=== PATIENT | female | born 1975 | race Caucasian/White ===

== ENCOUNTER 2016-09-20 09:05 | Emergency (ER) | payer MEDICAID ==
[~2016-09-20] VITALS: Ht 157.5 cm; Wt 62.0 kg
[~2016-09-20 09:05] MED LIST: NPH10OT RIGHT EAR
[2016-09-20 09:07] VITALS: Ht 157.5 cm; Wt 62.0 kg
[2016-09-20] MEDS ORDERED: KETOROLAC 30 MG INJ IM STA (09:48)
[2016-09-20] MEDS ORDERED: CYCL-319 PO (10:44)
[2016-09-20] MEDS ORDERED: TRAM50TA2 PO (10:44)
[2016-09-20] MEDS ORDERED: NAPR-260 PO (10:45)
--- NOTE | 2016-09-20 10:54 | ERD ---
ER Documentation Chief Complaint Date/Time DATE: 09/20/16 TIME: 10:49 Chief Complaint neck pain/spasm HPI This a 40-year-old female who presents the emergency department today complaining of neck pain that started last night while she was sleeping. States she has been icy hot patch on it. States that she has some pain down into her right arm. 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 Denies any sore throat , fevers or chills. Denies any trauma. ROS All systems reviewed and are negative except as per history of present illness. Medications Home Meds Active Scripts Naproxen* (Naprosyn*) 500 Mg Tablet, 500 MG PO BID Y for PAIN AND/OR INFLAMMATION, #30 TAB Prov:KARMEN COLLIER PA-C 09/20/16 Cyclobenzaprine Hcl* (Cyclobenzaprine Hcl*) 10 Mg Tablet, 10 MG PO QHS, #7 TAB Prov:KARMEN COLLIERC 09/20/16 Tramadol HCl (Tramadol HCl) 50 Mg Tablet, 50 MG PO Q4 Y for PAIN, #20 TAB Prov:KARMEN COLLIERC 09/20/16 Neomycin/Polymyxin/Hydrocort* (Cortisporin* Otic) 10 Ml Susp, 4 DROP RIGHT EAR QID for 7 Days, EA Prov:JULIANNA OVALLE NP 02/10/15 Allergies Allergies: Coded Allergies: No Known Allergy (Verified Allergy, Unknown, 07/02/08) PMhx/Soc Medical and Surgical Hx: pt denies Medical Hx, pt denies Surgical Hx Hx Alcohol Use: No Hx Substance Use: No Hx Tobacco Use: No Smoking Status: Never smoker Physical Exam Vitals Vital Signs Date Time Temp Pulse Resp B/P Pulse Ox O2 Delivery O2 Flow Rate FiO2 09/20/16 09:07 98.1 89 18 139/67 99 Physical Exam Const: No acute distress Head: Atraumatic Eyes: Normal Conjunctiva ENT: Normal External Ears, Nose and Mouth. Neck: Decreased range of motion turning neck to the right secondary to pain. .~ No meningismus. Mild midline tenderness. Right-sided paraspinal tenderness. Resp: Clear to auscultation bilaterally Cardio: Regular rate and rhythm, no murmurs Skin: No petechiae or rashes MSK: Right shoulder and arm with full active range of motion. Distal neurovascularly intact. Good preparing box tender strength 5 out of 5. Good cap refill. Neur: Awake and alert Psych: Normal Mood and Affect Results 24 hrs Current Medications Medications (Trade) Dose Ordered Sig/Jonna Route PRN Reason Start Time Stop Time Status Last Admin Dose Admin Ketorolac Tromethamine (Toradol) 30 mg ONCE STAT IM 09/20/16 09:48 09/20/16 09:49 DC 09/20/16 10:01 Procedures/MDM 40-year-old female who presents emergency department complaining of neck pain and difficulty turning her head to the right. Patient is afebrile and otherwise well-appearing. She denies any trauma. Do not feel that she requires imaging at this time. Low suspicion for acute fracture dislocation. Patient does work as a medical data entry clerk and she did have some complaints of some pain down into her right arm and she may have some osteoarthritis versus degenerative disc disease however I do not feel that the patient requires laboratory workup or imaging at this time.Patient has full active range of motion at her shoulder and she had good preparing box tender strength Patient symptoms at this time is consistent with muscle strain versus sprain versus muscle spasm. Low suspicion for torticollis. Low suspicion for strep pharyngitis, retropharyngeal abscess or peritonsillar abscess as a cause of neck pain. Patient throat exam is benign. She was given Toradol here in the emergency department. She will be given a prescription for tramadol, Naprosyn and Flexeril for home. At this time the patient is stable for discharge and outpatient management. Patient should follow up with their PCP in the next 1-2 days. They may return to the emergency department sooner for any persistent or worsening of symptoms. Patient understood and agreed with the plan. Departure Diagnosis: Primary Impression: Neck pain Condition: Fair Patient Instructions: Muscle Spasm, Neck Pain, No Trauma [facility]: [facility] Usted se modi hecho un examen mdico de control que le indica que no est en sabi condicin que requiera tratamiento urgente en el Departamento de Emergencia. Un estudio ms profundo y el tratamiento de valladares condicin pueden esperar sin ningn riesgo hasta que usted sea atendida/o en el consultorio de valladares mdico o sabi cl fransisco. Es responsabilidad suya arreglar sabi chelly para el seguimiento del charles. MANEJO DE CONDICIONES NO URGENTES EN EL FUTURO 1) Si usted tiene un mdico de atencin primaria: Usted debera llamar a valladares mdico de atencin primaria antes de venir al departamento de emergencia. Despus de las horas de consultorio, valladares doctor o valladares asociado/a est disponible por telfono. El mdico o enfermero de gilberto en el servicio telefnico puede asesorarle por jerzy medio para atender el problema, o charles contrario se puede programar sabi chelly. 2) Si usted no tiene un mdico de atencin primaria: Llame al mdico o clnica de referencia que aparece abajo laurie las horas de consultorio para hacer sabi chelly para que le vean. CLINICAS: [facility] [id number] [facility] [facility] [phone] [facility] [facility] [phone] [address] [facility] [place] [phone] [id number] [facility] [place] [id number] [phone] [place] [id number] [phone] Additional Instructions: Llame al doctor MAANA y masood sabi CHELLY PARA DENTRO DE 1-2 WALTER.Dgale a la secretaria que nosotros le instruimos hacer esta chelly.Avise o llame si valladares condicin se empeora antes de la chelly. Regresa aqui si peor o no mejor. Take tramadol for severe pain otherwise take Naprosyn or Tylenol or Motrin Take Flexeril for muscle spasms. Take only at night and do not travel taking this medication Apply ice and heat intermittently KARMEN COLLIER PA-C September 20, 2016 10:53
== END 2016-09-20 11:10 | disposition home or self-care (01) ==
LOC: FTE 09:05
DX: M54.2 Cervicalgia (principal)
CPT/HCPCS: 96372; J1885; Z7502